=== PATIENT | female | born 1990 | race Caucasian/White ===

== ENCOUNTER 2020-04-21 06:03 | Inpatient (IN) ==
[2020-04-21] MEDS ORDERED: ONDANSETRON 4 MG/2 ML VIAL IV PRN (06:46)
[2020-04-21] MEDS: LACTATED RINGERS 1,000 ML IV SCH ×2 (06:59→08:07)
[2020-04-21] MEDS ORDERED: OXYTOCIN/LR 20 UNIT/1,000 ML BAG IV SCH (07:00)
[2020-04-21 07:09] LABS: Basophils % 0.3 % (0.0-0.8); Eosinophils % 0.4 % (0.00-10.9); Hematocrit 36.7 VOL% (35.7-47.0); Hemoglobin 12.3 GM/DL (12.0-16.0); Immature Granulocytes % 0.9 %; Lymphocytes # 3.1 10*3/uL (1.4-4.0); Lymphocytes % 28.3 % (21.3-54.2); Mean Corpuscular HGB Conc 33.5 GM/DL (32-36); Mean Corpuscular Volume 93.1 FL (87-102); Monocytes % 5.4 % (1.7-12.7); Neutrophils % 64.7 % (38.7-73.9); Platelet Count 162 T/CUMM (130-400); Red Blood Count 3.94 MC/CUMM (3.8-5.5); Red Cell Distribution Width 13.9 % (9.3-17.3); White Blood Count 10.9 T/CUMM (4-12)
[2020-04-21] MEDS ORDERED: LACTATED RINGERS 1,000 ML IV ONE (07:21)
[2020-04-21] MEDS ORDERED: FAMOTIDINE 20 MG/2 ML VIAL IV ONE (07:21)
[2020-04-21] MEDS ORDERED: CITRIC ACID/SODIUM CITRATE 30 ML UDCUP PO ONE (07:21)
[2020-04-21] MEDS ORDERED: NALOXONE 0.4 MG/ML VIAL IV PRN (07:21)
[2020-04-21] MEDS ORDERED: diphenhydrAMINE 50 MG/1 ML VIAL IV PRN ×2 (07:21)
[2020-04-21] MEDS ORDERED: PROMETHAZINE 25 MG/1 ML VIAL IM ONE (07:21)
[2020-04-21] MEDS ORDERED: hydrOXYzine HCL 25 MG/1 ML VIAL IM PRN (07:21)
[2020-04-21] MEDS ORDERED: ePHEDrine 50 MG/ML AMP IV PRN (07:21)
[2020-04-21] MEDS ORDERED: fentaNYL 2 MCG/ROPIV 0.2% EPID 100 ML EPIDURAL SCH (07:30)
[2020-04-21 09:58] LABS: Apearance,Urine CLEAR (Clear); Bilirubin,Urine Negative (Negative); Blood, Urine Negative (Negative); Glucose,Urine (UA) Negative (Negative); Ketones,Urine 20 mg/dL (Negative); Mucus,Urine Occasional /LPF (Occasional); Nitrite,Urine Negative (Negative); Protein,Urine Negative; RBC,Urine <1 /HPF (0-4); Urine Color Straw (Yellow); Urine Specific Gravity 1.009 (1.001-1.035); Urine Urobilinogen < 2.0 EU/DL (0.2-1.0)
[2020-04-21] MEDS ORDERED: fentaNYL 100 MCG/2 ML VIAL ONE (13:42)
[2020-04-21 15:50] LABS: Cord Arterial Blood HCO3 20.3 MMOL/L
[2020-04-21 15:52] LABS: Cord Venous Blood PCO2 37.4 MMHG; Cord Venous Blood PO2 40.2
[2020-04-21] MEDS ORDERED: BISACODYL 10 MG SUPP RECTAL PRN (20:58)
[2020-04-21] MEDS ORDERED: MEASLES/MUMPS/RUBELLA VACCINE 0.5 ML VIAL SUBCUT ONE (20:58)
[2020-04-21] MEDS ORDERED: ACETAMINOPHEN 325 MG TABLET PO PRN (20:58)
[2020-04-21] MEDS ORDERED: DIPH/TET/ACEL PERT BOOSTER VACCINE 0.5 ML VIAL IM ONE (20:58)
[2020-04-21] MEDS ORDERED: HYDROCORTISONE 2.5% RECTAL CREAM 30 GM TUBE TOP PRN (20:58)
[2020-04-21] MEDS ORDERED: RHO(D) IMMUNE GLOBULIN 300 MCG SYRINGE IM ONE (20:58)
[2020-04-21] MEDS ORDERED: OXYTOCIN/LR 20 UNIT/1,000 ML BAG IV ONE (20:58)
[2020-04-21] MEDS ORDERED: LANOLIN 50% CREAM 0.3 OZ TUBE TOP PRN (20:58)
[2020-04-21] MEDS ORDERED: WITCH HAZEL PADS 100/JAR TOP PRN (20:58)
[2020-04-21] MEDS ORDERED: BENZOCAINE 20%/MENTHOL 0.5% SPRAY 56 GM CAN TOP PRN (20:58)
[2020-04-21] MEDS ORDERED: oxyCODONE/ACETAMINOPHEN 5-325 MG TABLET PO PRN ×2 (20:58)
[2020-04-21] MEDS: IBUPROFEN 800 MG TABLET PO PRN (21:13)
[2020-04-21] MEDS: DOCUSATE SODIUM 100 MG CAPSULE PO SCH (21:50)
[2020-04-22] MEDS: IBUPROFEN 800 MG TABLET PO PRN ×3 (03:32→21:06)
[2020-04-22 06:35] LABS: Basophils % 0.4 % (0.0-0.8); Eosinophils # 0.1 10*3/uL (0.0-0.87); Eosinophils % 0.5 % (0.00-10.9); Hematocrit 32.6 VOL% (35.7-47.0); Hemoglobin 10.6 GM/DL (12.0-16.0); Immature Granulocytes % 0.5 %; Immature Granulocytes Absolute 0.06 #; Lymphocytes # 3.3 10*3/uL (1.4-4.0); Lymphocytes % 30.2 % (21.3-54.2); Mean Corpuscular HGB Conc 32.5 GM/DL (32-36); Mean Corpuscular Volume 96.2 FL (87-102); Mean Platelet Volume 12.8 FL (9.6-12.0); Monocytes % 6.4 % (1.7-12.7); Platelet Count 125 T/CUMM (130-400); Red Blood Count 3.39 MC/CUMM (3.8-5.5); Red Cell Distribution Width 13.9 % (9.3-17.3)
[2020-04-22] MEDS: DOCUSATE SODIUM 100 MG CAPSULE PO SCH ×2 (08:42→21:06)
[2020-04-23 07:24] VITALS: BP 120/78
[2020-04-23] MEDS: IBUPROFEN 800 MG TABLET PO PRN (07:39)
[2020-04-23] MEDS: DOCUSATE SODIUM 100 MG CAPSULE PO SCH (07:39)
== END 2020-04-23 12:05 | disposition home or self-care (01) | DRG 560 ==
LOC: N.LDOUT 06:03 → N.LD 06:06 → N.OB 21:25
PROVIDERS: ADMIT Obstetrics & Gynecology; ATTEND Obstetrics & Gynecology

== ENCOUNTER 2021-06-05 05:17 | Inpatient (IN) ==
[2021-06-05] MEDS ORDERED: PROMETHAZINE 25 MG/1 ML VIAL IM ONE (06:04)
[2021-06-05] MEDS ORDERED: LACTATED RINGERS 500 ML IV ONE (06:04)
[2021-06-05] MEDS ORDERED: CITRIC ACID/SODIUM CITRATE 30 ML UDCUP PO ONE (06:04)
[2021-06-05] MEDS ORDERED: NALOXONE 0.4 MG/ML VIAL IV PRN (06:04)
[2021-06-05] MEDS ORDERED: LACTATED RINGERS 1,000 ML IV ONE (06:04)
[2021-06-05] MEDS ORDERED: BUTORPHANOL 2 MG/ML VIAL IV PRN (06:04)
[2021-06-05] MEDS ORDERED: diphenhydrAMINE 50 MG/1 ML VIAL IV PRN ×2 (06:04)
[2021-06-05] MEDS ORDERED: hydrOXYzine HCL 25 MG/1 ML VIAL IM PRN (06:04)
[2021-06-05] MEDS ORDERED: ONDANSETRON 4 MG/2 ML VIAL IV PRN ×2 (06:04→13:58)
[2021-06-05] MEDS ORDERED: ONDANSETRON 4 MG/2 ML VIAL IV ONE (06:04)
[2021-06-05] MEDS ORDERED: FAMOTIDINE 20 MG/2 ML VIAL IV ONE (06:04)
[2021-06-05] MEDS ORDERED: MEPERIDINE 50 MG/1 ML VIAL IV PRN (06:04)
[2021-06-05] MEDS: LACTATED RINGERS 1,000 ML IV SCH (06:28)
[2021-06-05] MEDS ORDERED: LACTATED RINGERS 1,000 ML IV SCH ×2 (06:30)
[2021-06-05 06:35] LABS: Basophils % 0.3 % (0.0-0.8); Eosinophils # 0.1 10*3/uL (0.0-0.87); Eosinophils % 0.5 % (0.00-10.9); Hematocrit 36.5 VOL% (35.7-47.0); Hemoglobin 12.3 GM/DL (12.0-16.0); Immature Granulocytes % 0.5 %; Immature Granulocytes Absolute 0.06 #; Lymphocytes # 2.9 10*3/uL (1.4-4.0); Lymphocytes % 26.7 % (21.3-54.2); Mean Corpuscular HGB Conc 33.7 GM/DL (32-36); Mean Corpuscular Volume 95.8 FL (87-102); Mean Platelet Volume 12.9 FL (9.6-12.0); Monocytes % 6.2 % (1.7-12.7); Neutrophils % 65.8 % (38.7-73.9); Platelet Count 217 T/CUMM (130-400); Red Blood Count 3.81 MC/CUMM (3.8-5.5); Red Cell Distribution Width 13.6 % (9.3-17.3); White Blood Count 10.9 T/CUMM (4-12)
[2021-06-05 07:05] LABS: Albumin 2.8 G/DL (3.4-5.0); Bilirubin,Total 0.6 MG/DL (0.20-1.00); Calcium 9.3 MG/DL (8.5-10.1); Osmolality,Calculated 269.8 MOS/KG (273-304); Potassium 3.9 MMOL/L (3.5-5.1)
[2021-06-05] MEDS: fentaNYL 2 MCG/ROPIV 0.2% EPID 100 ML EPIDURAL SCH (07:30)
[2021-06-05] MEDS: ePHEDrine 50 MG/ML VIAL IV PRN ×3 (08:05→08:09)
[2021-06-05] MEDS ORDERED: DEXTROSE 50% 25 GM/50 ML VIAL IV PRN (09:05)
[2021-06-05] MEDS ORDERED: GLUCAGON 1 MG VIAL IM PRN (09:05)
[2021-06-05] MEDS: OXYTOCIN/LR 20 UNIT/1,000 ML BAG IV SCH (09:25)
[2021-06-05 10:19] LABS: Bilirubin,Urine Negative (Negative); Blood, Urine Negative (Negative); Glucose,Urine (UA) Negative (Negative); Ketones,Urine 80 mg/dL (Negative); Mucus,Urine Occasional /LPF (Occasional); Nitrite,Urine Negative (Negative); Protein,Urine Negative; Squamous Epithelial Cell,Urine Occasional /HPF (0-10); Urine Appearance CLEAR (Clear); Urine Color Yellow (Yellow); Urine Specific Gravity 1.009 (1.001-1.035); Urine Urobilinogen < 2.0 EU/DL (0.2-1.0)
[2021-06-05] MEDS ORDERED: INSULIN REGULAR 100 UNIT/ML SUBCUT SCH (12:00)
[2021-06-05 12:15] LABS: Platelet Estimate Normal
[2021-06-05] MEDS ORDERED: CARBOPROST TROMETHAMINE 250 MCG/ML AMP IM ONE (13:16)
[2021-06-05] MEDS ORDERED: miSOPROStoL 200 MCG TABLET ONE (13:16)
[2021-06-05] MEDS ORDERED: METHYLERGONOVINE 0.2 MG/1 ML AMP ONE (13:16)
[2021-06-05] MEDS ORDERED: TRANEXAMIC ACID 1,000 MG/10 ML VIAL ONE (13:16)
[2021-06-05] MEDS ORDERED: HYDROCORTISONE 2.5% RECTAL CREAM 30 GM TUBE TOP PRN (13:58)
[2021-06-05] MEDS ORDERED: LANOLIN 50% CREAM 0.3 OZ TUBE TOP PRN (13:58)
[2021-06-05] MEDS ORDERED: MEASLES/MUMPS/RUBELLA VACCINE 0.5 ML VIAL SUBCUT ONE (13:58)
[2021-06-05] MEDS ORDERED: oxyCODONE/ACETAMINOPHEN 5-325 MG TABLET PO PRN ×2 (13:58)
[2021-06-05] MEDS ORDERED: WITCH HAZEL PADS 100/JAR TOP PRN (13:58)
[2021-06-05] MEDS ORDERED: BISACODYL 10 MG SUPP RECTAL PRN (13:58)
[2021-06-05] MEDS ORDERED: ACETAMINOPHEN 325 MG TABLET PO PRN (13:58)
[2021-06-05] MEDS ORDERED: OXYTOCIN/LR 20 UNIT/1,000 ML BAG IV ONE (13:58)
[2021-06-05] MEDS ORDERED: DIPH/TET/ACEL PERT BOOSTER VACCINE 0.5 ML VIAL IM ONE (13:58)
[2021-06-05] MEDS ORDERED: BENZOCAINE 20%/MENTHOL 0.5% SPRAY 56 GM CAN TOP PRN (13:58)
[2021-06-05] MEDS ORDERED: RHO(D) IMMUNE GLOBULIN 300 MCG SYRINGE IM ONE (13:58)
[2021-06-05 14:02] LABS: Cord Arterial Blood HCO3 22.2 MMOL/L
[2021-06-05 14:05] LABS: Cord Venous Blood HCO3 22.9 MMOL/L; Cord Venous Blood PCO2 36.9 MMHG; Cord Venous Blood PO2 29.1
[2021-06-05] MEDS: IBUPROFEN 800 MG TABLET PO PRN ×2 (16:04→22:20)
[2021-06-05] MEDS: DOCUSATE SODIUM 100 MG CAPSULE PO SCH (20:40)
[2021-06-06] MEDS: INSULIN REGULAR 100 UNIT/ML SUBCUT SCH ×3 (00:35→20:52)
[2021-06-06] MEDS: IBUPROFEN 800 MG TABLET PO PRN ×3 (04:06→20:54)
[2021-06-06 05:57] LABS: Basophils # 0.1 10*3/uL (0.0-0.2); Basophils % 0.4 % (0.0-0.8); Eosinophils # 0.1 10*3/uL (0.0-0.87); Eosinophils % 0.7 % (0.00-10.9); Hematocrit 31.7 VOL% (35.7-47.0); Hemoglobin 10.4 GM/DL (12.0-16.0); Immature Granulocytes % 0.4 %; Immature Granulocytes Absolute 0.05 #; Lymphocytes # 3.5 10*3/uL (1.4-4.0); Lymphocytes % 27.9 % (21.3-54.2); Mean Corpuscular HGB Conc 32.8 GM/DL (32-36); Mean Corpuscular Volume 96.1 FL (87-102); Mean Platelet Volume 12.9 FL (9.6-12.0); Monocytes % 7.1 % (1.7-12.7); Neutrophils % 63.5 % (38.7-73.9); Platelet Count 158 T/CUMM (130-400); Red Cell Distribution Width 13.5 % (9.3-17.3); White Blood Count 12.5 T/CUMM (4-12)
[2021-06-06] MEDS: metFORMIN 500 MG TABLET PO SCH ×2 (09:34→17:23)
[2021-06-06] MEDS: DOCUSATE SODIUM 100 MG CAPSULE PO SCH ×2 (09:34→20:54)
[2021-06-06] MEDS: PANTOPRAZOLE 40 MG TABLET PO SCH (09:34)
[2021-06-06] MEDS: MULTIVITAMIN (PRENATAL) TABLET PO SCH (09:34)
[2021-06-06] MEDS ORDERED: GLUCAGON 1 MG VIAL IM PRN (10:40)
[2021-06-06] MEDS ORDERED: DEXTROSE 50% 25 GM/50 ML VIAL IV PRN (10:40)
[2021-06-06] MEDS: LACTATED RINGERS 1,000 ML IV SCH (11:02)
[2021-06-06] MEDS: OXYTOCIN/LR 20 UNIT/1,000 ML BAG IV SCH (11:03)
[2021-06-06] MEDS: fentaNYL 2 MCG/ROPIV 0.2% EPID 100 ML EPIDURAL SCH (11:03)
[2021-06-07] MEDS: MULTIVITAMIN (PRENATAL) TABLET PO SCH (07:28)
[2021-06-07] MEDS: DOCUSATE SODIUM 100 MG CAPSULE PO SCH (07:28)
[2021-06-07] MEDS: INSULIN REGULAR 100 UNIT/ML SUBCUT SCH (07:28)
[2021-06-07] MEDS: PANTOPRAZOLE 40 MG TABLET PO SCH (07:28)
[2021-06-07] MEDS: metFORMIN 500 MG TABLET PO SCH (07:28)
[2021-06-07 07:57] VITALS: BP 116/70
== END 2021-06-07 13:10 | disposition home or self-care (01) | DRG 560 ==
LOC: N.LDOUT 05:17 → N.LD 05:21 → N.OB 17:31
PROVIDERS: ADMIT Specialist; ATTEND Specialist